=== PATIENT | male | born 1970 | race Caucasian/White ===

== ENCOUNTER → 2020-05-26 | Outpatient (REF) | payer OTHER ==
[2020-05-26 16:08] LABS: LUTEINIZING HORMONE 2.8 mIU/mL (1.5-9.3); PROLACTIN 3.7 NG/ML (2.1-17.7)
[2020-05-31 05:09] LABS: ESTROGENS TOTAL 213 pg/mL (40-115)
== END ==
LOC: M LABSMT 10:39
PROVIDERS: ATTEND Urology
DX: E29.1 Testicular hypofunction (principal)

== ENCOUNTER 2023-06-19 18:49 | Emergency (ER) | payer OTHER ==
[~2023-06-19] VITALS: Ht 182.9 cm; Wt 147.7 kg
[2023-06-19] MEDS ORDERED: GABA-282 (19:08)
[2023-06-19] MEDS ORDERED: MORPHINE 4 MG/ML 1ML VIAL IV PRN (19:45)
[2023-06-19] MEDS ORDERED: ONDANSETRON 4MG 2ML VIAL IV ONE (19:45)
[2023-06-19] MEDS ORDERED: ISOVUE-370 76% 100ML VIAL As Ordered ONE (19:50)
[2023-06-19 20:32] LABS: BASO # 0.1 10^3/uL (0.0-0.2); BASO % 0.3 % (0.0-1.0); EOS # 0.1 10^3/uL (0.0-0.5); EOS % 0.4 % (0.0-3.0); HEMATOCRIT 40.7 % (42.0-52.0); HEMOGLOBIN 13.6 g/dl (13.5-17.5); LYMPH % 17.2 % (24.0-44.0); MEAN CORPUSCULAR HEMOGLOBIN 29.8 pg (27.0-33.0); MEAN CORPUSCULAR HGB CONC 33.4 g/dl (32.0-36.5); MEAN CORPUSCULAR VOLUME 89.1 fl (80.0-96.0); MONO # 1.5 10^3/uL (0.0-0.8); MONO % 6.5 % (2.0-8.0); NEUTROPHILS # 17.3 10^3/uL (1.5-8.5); NEUTROPHILS % 74.4 % (36.0-66.0); PLATELET COUNT, AUTOMATED 375 10^3/uL (150-450); RED BLOOD COUNT 4.57 10^6/uL (4.30-6.10); WHITE BLOOD COUNT 23.2 10^3/uL (4.0-10.0)
[2023-06-19 20:36] LABS: LIPASE 30 U/L (12-53)
[2023-06-19 20:37] LABS: ETHYL ALCOHOL (ETHANOL) < 0.003 % (0.000-0.010)
[2023-06-19 20:38] LABS: AMYLASE 43 U/L (30-118); CK-MB VALUE MASS 9.6 NG/ML (<3.6)
[2023-06-19 20:39] LABS: ALBUMIN 3.6 G/DL (3.2-5.2); ALKALINE PHOSPHATASE 49 U/L (46-116); ALT/SGPT 26 U/L (7.0-40); AST/SGOT 24 U/L (<34); BILIRUBIN,DIRECT 0.2 MG/DL (<0.4); BILIRUBIN,TOTAL 0.6 MG/DL (0.3-1.2); BLOOD UREA NITROGEN 18 MG/DL (9-23); CALCIUM LEVEL 9.1 MG/DL (8.5-10.1); CARBON DIOXIDE LEVEL 28 MMOL/L (20-31); CHLORIDE LEVEL 100 MMOL/L (98-107); CREATININE FOR GFR 1.19 MG/DL (0.70-1.30); GLOMERULAR FILTRATION RATE > 60.0 (>56); GLUCOSE, FASTING 115 MG/DL (60-100); POTASSIUM SERUM 3.8 MMOL/L (3.5-5.1); SODIUM LEVEL 137 MMOL/L (136-145); TOTAL PROTEIN 6.8 G/DL (5.7-8.2)
[2023-06-19] MEDS ORDERED: NS 1,000 ML IV ONE (20:40)
[2023-06-19 20:43] LABS: CPK CREATINE PHOSPHOKINASE 531 U/L (46-171)
[2023-06-19] MEDS ORDERED: IPRATROPIUM 0.5MG/ALBUTEROL 2.5MG INH SOL UD 3ML (DUONEB) NEB SCH (20:50)
[2023-06-19 20:58] LABS: VENOUS PH 7.329 UNITS (7.330-7.430)
[2023-06-19 20:59] LABS: VENOUS HCO3 28.1 MMOL/L (23.0-27.0); VENOUS PARTIAL PRESSURE CO2 54.7 mmHg (38.0-50.0); VENOUS PARTIAL PRESSURE O2 23.9 mmHg (30.0-50.0); VENOUS STANDARD HCO3 23.8 MMOL/L; VENOUS TOTAL CO2 29.8 MMOL/L (24.0-28.0)
[2023-06-19] MEDS: HYDROMORPHONE HCL 0.5 MG/ 0.5 ML SYRINGE IV PRN ×2 (21:19→21:37)
[2023-06-19 21:25] LABS: INR 1.07; PARTIAL THROMBOPLASTIN TIME 26.5 SECONDS (24.8-34.2); PROTHROMBIN TIME 13.6 SECONDS (12.5-14.5)
[2023-06-19 21:34] VITALS: BP 104/63; TEMP 97.6; O2SAT 95
[2023-06-20] MEDS ORDERED: UNRESOLVED CLARIFICATION ENTRY XX SCH (00:01)
== END 2023-06-19 21:46 | disposition short-term general hospital (02) ==
LOC: EDBD 18:49 → M ED 18:49
DX: S72.402A Unspecified fracture of lower end of left femur, initial encounter for closed fracture (principal); S12.191A Other nondisplaced fracture of second cervical vertebra, initial encounter for closed fracture; V43.52XA Car driver injured in collision with other type car in traffic accident, initial encounter; F19.10 Other psychoactive substance abuse, uncomplicated; Z96.652 Presence of left artificial knee joint; Z88.1 Allergy status to other antibiotic agents; Z91.030 Bee allergy status
CPT/HCPCS: 70450; 70486; 71045; 71260; 72125; 72170; 73552; 73590; 73630; 74177; 80047; 80048; 80076; 82077; 82150; 82550; 82553; 82803; 83605; 83690; 84484; 85025; 85610; 85730; 86850; 86900; 86901; 87635; 93005; 94760; 96374; 96375; 96376; 99285; J1170; J2405; Q9967

== ENCOUNTER → 2024-01-08 | Outpatient (REF) ==
[~2024-01-08] MED LIST: GABA-282
== END ==
LOC: M PLAIMG 10:13
PROVIDERS: ATTEND Internal Medicine
DX: R52 Pain, unspecified (principal)